=== PATIENT | female | born 1960 | race Caucasian/White ===

== ENCOUNTER → 2019-03-27 16:26 | Outpatient (ROUT) | payer BC, SELFPAY ==
[2019-03-27 16:54] LABS: Add Manual Diff / Slide Review NO; Basophils Absolute Auto 0 /uL (0-100); Basophils Percent Auto 0.9 % (0-2); Eosinophils Absolute Auto 100 /uL (0-450); Eosinophils Percent Auto 4.1 % (2-4); Hematocrit 40.9 % (36-46); Hemoglobin 13.6 g/dL (12.0-16.0); Lymphocytes Absolute Auto 900 /uL (1100-4500); Mean Corpuscular HGB Conc 33.4 % (30-36); Mean Corpuscular Hemoglobin 29.7 PG (26-34); Mean Corpuscular Volume 89.1 fL (80-100); Monocytes Absolute Auto 300 /uL (0-900); Monocytes Percent Auto 8.2 % (3-14); Neutrophils Absolute Auto 2000 /uL (1500-7000); Neutrophils Percent Auto 59.8 % (50-75); Platelet Count 207 X10^3/uL (150-400); Red Blood Cell Count 4.59 X10^6/uL (4.0-5.2); Red Cell Distribution Width 13.3 % (11.6-14.8); White Blood Cell Count 3.3 X10^3/uL (4.5-11.0)
[2019-03-27 17:07] LABS: Blood Urea Nitrogen 14 mg/dL (7-17); Calcium 9.3 mg/dL (8.4-10.2); Carbon Dioxide 28 mmol/L (22-32); Chloride 100 mmol/L (98-107); Cholesterol 258 mg/dL (140-199); Estimated Glomerular Filt Rate > 60.0 mL/min (>60); Glucose 93 mg/dL (70-100); HDL Cholesterol 60 mg/dL (40-60); HEMOLYSIS < 15 (0-50); LDL Cholesterol Calculated 179 mg/dL (<100); Potassium 4.6 mmol/L (3.4-5.1); Sodium 138 mmol/L (137-145); Triglycerides 96 mg/dL (35-150)
[2019-03-27 17:36] LABS: TSH w/ Reflex to FT4 < 0.02 uIU/mL (0.47-4.68)
[2019-03-27 18:19] LABS: Free T4, Direct Thyroxine 1.85 ng/dL (0.78-2.19)
== END ==
PROVIDERS: Visit Provider Internal Medicine
DX: Z13.1 Encounter for screening for diabetes mellitus (principal); D72.819 Decreased white blood cell count, unspecified; E78.5 Hyperlipidemia, unspecified; E89.0 Postprocedural hypothyroidism
CPT/HCPCS: 80048; 80061; 84439; 84443; 85025

== ENCOUNTER 2019-10-22 11:16 | Emergency (ER) | payer BC, SELFPAY ==
[2019-10-22 11:20] VITALS: BP 146/74; PULSE 74; RESP 14; TEMP 37.1; O2SAT 100
--- NOTE | 2019-10-22 11:34 | DI.RAD.S_ITS ---
PROCEDURE: XR CHEST 1V INDICATIONS: epigastric pain TECHNIQUE: One view of the chest was acquired. COMPARISON: None. FINDINGS: Surgical changes and devices: None. Lungs and pleura: Lungs are clear. No pleural effusions or pneumothorax. Mediastinum: Mediastinal contours appear normal. Heart size is normal. Bones and chest wall: No suspicious bony lesions. Overlying soft tissues appear unremarkable. IMPRESSION: No acute disease Dictated by: Adelso White M.D. on 10/22/2019 at 13:35 Approved by: Adelso White M.D. on 10/22/2019 at 13:35
--- NOTE | 2019-10-22 11:36 | ED.FALL ---
HPI - Fall <KATY Be - Last Filed: 10/22/19 20:03> General Chief Complaint: Fall Stated Complaint: fall 4 days ago,sholder pain,hit head,indigestion Time Seen by Provider: 10/22/19 11:21 Source: patient Mode of arrival: Ambulatory History of Present Illness HPI Narrative: 59yo female presents to the ED for epigastric pain and nausea that started after fall. She states she fell 5 days ago on Monday. She was on a boat that was not moving but slipped and fell. Patient states she fell on the floor with about hitting her back in the back of her head. She did not lose consciousness, denies vomiting, denies taking any blood thinners. She was able to get up immediately after the fall. She reports feeling stiff and sore especially in the mornings. This morning she woke up and noticed increased soreness that started in the middle of her back and radiated to her neck, this was worse with movement. However, she also noticed epigastric pain and nausea. She woke up this morning and took a heartburn pill and drink chamomile tea and went back to bed. Upon wakening her epigastric pain resolved but she continues to have nausea. She denies any vision changes, headaches at this time, neck pain at this time, arm pain, vomiting, diarrhea, fevers, shortness of breath, cough, or any other concerns. Patient states she has a history of thyroid cancer approximately 20 years ago, her thyroid is removed and she takes Synthroid. Denies any other major medical issues. Related Data Previous Rx's Medication Instructions Recorded ondansetron 4 mg PO Q6H PRN #6 tab 10/22/19 Allergies Allergy/AdvReac Type Severity Reaction Status Date / Time epinephrine AdvReac Intermediate Palpitation Verified 10/22/19 11:27 s Review of Systems <KATY Be - Last Filed: 10/22/19 20:03> Review of Systems Narrative: REVIEW OF SYSTEMS: GENERAL: Denies fever, chills, malaise, or wt. loss. HENT: No reports headache, see HPI. EYES: No vision changes. CARDIOVASCULAR: No chest pain. RESPIRATORY: No cough. GASTROINTESTINAL: Complains of epigastric pain, see HPI GENITOURINARY: No flank pain, urinary incontinence, hesitancy, frequency, or dysuria. MUSCULOSKELETAL: No pain, weakness, or trauma. INTEGUMENTARY: No rash, lesions, or pruritus. NEURO: No numbness, tingling, memory loss, confusion. PSYCH: No behavior or mood changes. Patient History <KATY Be - Last Filed: 10/22/19 20:03> Medical History No significant medical problems (Acute) Social History Smoking Status: Former smoker Smoking Status: Former smoker tobacco type: cigarettes alcohol intake frequency: 0-2 drinks per day Substance Use Type: does not use Exam <KATY Be - Last Filed: 10/22/19 20:03> Initial Vital Signs Initial Vital Signs: Vital Signs Temperature 98.7 F 10/22/19 11:20 Pulse Rate 74 10/22/19 11:20 Respiratory Rate 14 10/22/19 11:20 Blood Pressure 146/74 H 10/22/19 11:20 Pulse Oximetry 100 10/22/19 11:20 PHYSICAL EXAMINATION: GENERAL: Well groomed, alert, and cooperative. Answers questions promptly and appropriately. Vital signs noted. HENT: Normocephalic, atraumatic. Hearing intact. Oral mucosa is pink and moist. EYES: Conjunctiva pink, sclera white, no periorbital swelling. NECK: Nontender, full range of motion CARDIOVASCULAR: S1 and S2 sounds normal. Regular rate and rhythm, no murmurs, clicks, or bruits. No pedal edema. RESPIRATORY: Normal respiratory rate, trachea midline, airway patent. No stridor, nasal flaring or accessory muscle use. Lungs are clear in all shaw without wheeze, rhonchi, or crackles. GASTROINTESTINAL: Bowel sounds normoactive. Abdomen is soft, slight epigastric tenderness. No organomegaly, no palpable masses. GENITALURINARY: No flank tenderness. MUSCULOSKELETAL: Mild mid thoracic paraspinal vertebral tenderness. Normal gait and coordination. Equal tone and mass bilaterally. No spinal deformities or bony tenderness. Equal spanish professor strength bilaterally. EXTREMITIES: CMS intact, no pedal edema. SKIN: Warm, dry, soft, appropriate color for ethnicity. No lesions, rashes, or wounds to visualized areas. NEURO: Alert and Oriented X 3. Good coordination. No ataxia, or sensory deficits, or cognitive issues. PSYCH: Appropriate affect and mood. <Sean Espinoza MD - Last Filed: 10/23/19 13:17> Initial Vital Signs Initial Vital Signs: Vital Signs Temperature 98.7 F 10/22/19 11:20 Pulse Rate 74 10/22/19 11:20 Respiratory Rate 14 10/22/19 11:20 Blood Pressure 146/74 H 10/22/19 11:20 Pulse Oximetry 100 10/22/19 11:20 Scores <KATY Be - Last Filed: 10/22/19 20:03> Nexus Score for C-Spine Focal Neurologic deficit present: No Midline spinal tenderness present: No Altered level of conciousness present: No Intoxication present: No Distracting Injury Present: No Nexus Criteria for C-spine: 0 Course <KATY Be - Last Filed: 10/22/19 20:03> Course Course Narrative: Patient was given ondansetron and Toradol, reports improvement of symptoms. Orders Ordered: Discontinued Medications Ketorolac Tromethamine (Toradol) 30 mg IV NOW ONE Stop: 10/22/19 11:35 Last Admin: 10/22/19 12:05 Dose: 30 mg Documented by: MARLEY Ondansetron HCl (Zofran) 4 mg IV NOW ONE Stop: 10/22/19 11:35 Last Admin: 10/22/19 12:05 Dose: 4 mg Documented by: MARLEY Vital Signs Vital signs: Vital Signs - 8 hr 10/22/19 12:59 Pulse Rate 72 Blood Pressure 115/55 L Pulse Oximetry 99 <Sean Espinoza MD - Last Filed: 10/23/19 13:17> Orders Ordered: Discontinued Medications Ketorolac Tromethamine (Toradol) 30 mg IV NOW ONE Stop: 10/22/19 11:35 Last Admin: 10/22/19 12:05 Dose: 30 mg Documented by: MARLEY Ondansetron HCl (Zofran) 4 mg IV NOW ONE Stop: 10/22/19 11:35 Last Admin: 10/22/19 12:05 Dose: 4 mg Documented by: MARLEY Vital Signs Vital signs: Vital Signs - 8 hr 10/22/19 12:59 Pulse Rate 72 Blood Pressure 115/55 L Pulse Oximetry 99 MDM - Fall <KATY Be - Last Filed: 10/22/19 20:03> Medical Records Attestation: I reviewed the patient's medical records. Lab Data Attestation: I reviewed the patient's lab results. Result diagrams: 10/22/19 11:56 10/22/19 11:56 Labs: Lab Results 10/22/19 10/22/19 Range/Units 11:56 11:56 WBC 3.3 L (4.5-11.0) X10^3/uL RBC 4.40 (4.0-5.2) X10^6/uL Hgb 12.7 (12.0-16.0) g/dL Hct 38.5 (36-46) % MCV 87.4 (80-100) fL MCH 28.9 (26-34) PG MCHC 33.0 (30-36) % RDW 13.2 (11.6-14.8) % Plt Count 204 (150-400) X10^3/uL Neut % (Auto) 63.2 (50-75) % Lymph % (Auto) 25.8 (25-40) % Sierra % (Auto) 8.5 (3-14) % Eos % (Auto) 1.7 L (2-4) % Baso % (Auto) 0.8 (0-2) % Neut # (Auto) 2100 (8887-2626) /uL Lymph # (Auto) 800 L (3745-4833) /uL Sierra # (Auto) 300 (0-900) /uL Eos # (Auto) 100 (0-450) /uL Baso # (Auto) 0 (0-100) /uL Sodium 137 (137-145) mmol/L Potassium 4.2 (3.4-5.1) mmol/L Chloride 103 (98-107) mmol/L Carbon Dioxide 27 (22-32) mmol/L BUN 10 (7-17) mg/dL Creatinine 0.64 (0.52-1.04) mg/dL Estimated GFR > 60.0 (>60) mL/min BUN/Creatinine Ratio 15.6 (6-22) Glucose 94 (70-100) mg/dL Calcium 9.1 (8.4-10.2) mg/dL Total Bilirubin 0.7 (0.2-1.3) mg/dL AST 26 (14-36) IU/L ALT 20 (<35) IU/L Alkaline Phosphatase 85 (38-126) U/L Total Creatine Kinase 44 (30-135) U/L CK-MB (CK-2) TNP CK-MB (CK-2) Rel Index TNP Troponin I < 0.012 (0.01-0.034) ng/mL Total Protein 7.7 (6.3-8.2) g/dL Albumin 4.4 (3.5-5.0) g/dL Globulin 3.3 (1.7-4.1) g/dL Albumin/Globulin Ratio 1.3 (1.0-2.8) Imaging Data Chest x-ray: Radiologist's Impression: [address] [address] XRay Report Signed Patient: Gisselle Lao FMR#: [id number] : 2Acct:[id number] Age/Sex: 59 / FDate of Service: 10/22/19 Loc: ED Accession Number: [id number] Procedure: XR chest 1V Ordering Provider: Magy Sunshine PROCEDURE: XR CHEST 1V INDICATIONS: epigastric pain TECHNIQUE: One view of the chest was acquired. COMPARISON: None. FINDINGS: Surgical changes and devices: None. Lungs and pleura: Lungs are clear. No pleural effusions or pneumothorax. Mediastinum: Mediastinal contours appear normal. Heart size is normal. Bones and chest wall: No suspicious bony lesions. Overlying soft tissues appear unremarkable. IMPRESSION: No acute disease Dictated by: Adelso White M.D. on 10/22/2019 at 13:35 Approved by: Adelso White M.D. on 10/22/2019 at 13:35 ECG Data Interpretation: 1125: Normal sinus rhythm, rate 82, [place] interval 142, QTC 441. No ST elevation or ST depression. T-wave inversion noted in Lead III and V1. [facility] Narrative Medical decision making narrative: 59-year-old female presents emergency department for epigastric pain and back pain after fall. I suspect patient's symptoms are most likely caused by post concussion syndrome given mechanism of injury, associated nausea, and headaches. Less concern for intracranial etiology given normal neurological exam, greater than 48 hours since onset, and lack of other concerning symptoms. Less likely cardiac etiology given negative troponin, non remarkable EKG, and unremarkable chest x-ray. Less likely fracture given lack of bony tenderness, full range of motion of neck, and tenderness with palpation along surrounding muscles. Additionally, patient reports stiffness that is relieved throughout the day. Less likely acute abdominal etiology given lack of infectious symptoms such as tachycardia or fever. Laboratory work is non-remarkable, abdominal exam is benign. Patient was encouraged to take Tylenol and ibuprofen as needed for pain. Return precautions given for new or worsening symptoms. Patient agreed to plan of care verbalized understanding. <Sean Espinoza MD - Last Filed: 10/23/19 13:17> Lab Data Labs: Lab Results 10/22/19 10/22/19 Range/Units 11:56 11:56 WBC 3.3 L (4.5-11.0) X10^3/uL RBC 4.40 (4.0-5.2) X10^6/uL Hgb 12.7 (12.0-16.0) g/dL Hct 38.5 (36-46) % MCV 87.4 (80-100) fL MCH 28.9 (26-34) PG MCHC 33.0 (30-36) % RDW 13.2 (11.6-14.8) % Plt Count 204 (150-400) X10^3/uL Neut % (Auto) 63.2 (50-75) % Lymph % (Auto) 25.8 (25-40) % Sierra % (Auto) 8.5 (3-14) % Eos % (Auto) 1.7 L (2-4) % Baso % (Auto) 0.8 (0-2) % Neut # (Auto) 2100 (5010-4936) /uL Lymph # (Auto) 800 L (4612-3524) /uL Sierra # (Auto) 300 (0-900) /uL Eos # (Auto) 100 (0-450) /uL Baso # (Auto) 0 (0-100) /uL Sodium 137 (137-145) mmol/L Potassium 4.2 (3.4-5.1) mmol/L Chloride 103 (98-107) mmol/L Carbon Dioxide 27 (22-32) mmol/L BUN 10 (7-17) mg/dL Creatinine 0.64 (0.52-1.04) mg/dL Estimated GFR > 60.0 (>60) mL/min BUN/Creatinine Ratio 15.6 (6-22) Glucose 94 (70-100) mg/dL Calcium 9.1 (8.4-10.2) mg/dL Total Bilirubin 0.7 (0.2-1.3) mg/dL AST 26 (14-36) IU/L ALT 20 (<35) IU/L Alkaline Phosphatase 85 (38-126) U/L Total Creatine Kinase 44 (30-135) U/L CK-MB (CK-2) TNP CK-MB (CK-2) Rel Index TNP Troponin I < 0.012 (0.01-0.034) ng/mL Total Protein 7.7 (6.3-8.2) g/dL Albumin 4.4 (3.5-5.0) g/dL Globulin 3.3 (1.7-4.1) g/dL Albumin/Globulin Ratio 1.3 (1.0-2.8) Discharge Plan Departure Patient Disposition: Home Clinical Impression: Concussion Qualifiers: Encounter type: initial encounter Loss of consciousness presence/duration: without LOC Qualified Code(s): S06.0X0A - Concussion without loss of consciousness, initial encounter Discharge Date/Time: 10/22/19 13:07 Instructions: DI for Concussion, How to Prevent Falls Activity Restrictions/Additional Instructions: Thank you for entrusting me with your care today. As discussed, it appears you have a mild concussion. This can cause you to have headaches, nausea, and feels fatigued. Symptoms can last up to 2 weeks. I recommend decreasing activities that cause worsening symptoms such as screen time, and rigorous physical activity. Take naps when possible. I have prescribed you some nausea medication, please use this as needed. Return emergency department for any new or worsening symptoms such as severe pain, uncontrollable vomiting, chest pain, or any other concerns. Prescriptions: New ondansetron 4 mg tablet,disintegrating 4 mg PO Q6H PRN (Reason: nausea and vomiting) Qty: 6 RF: 0 Referrals: Laisha Quigley MD [Primary Care Provider] - <Sean Espinoza MD - Last Filed: 10/23/19 13:17> Cosign ED Attending Cosignature Attestation: I was immediately available in the department for consultation. This documentation has been reviewed and I agree with assessment and plan. Supervised by Sean Espinoza MD
[2019-10-22 12:03] LABS: Add Manual Diff / Slide Review NO; Basophils Absolute Auto 0 /uL (0-100); Basophils Percent Auto 0.8 % (0-2); Eosinophils Absolute Auto 100 /uL (0-450); Eosinophils Percent Auto 1.7 % (2-4); Hematocrit 38.5 % (36-46); Hemoglobin 12.7 g/dL (12.0-16.0); Lymphocytes Absolute Auto 800 /uL (1100-4500); Lymphocytes Percent Auto 25.8 % (25-40); Mean Corpuscular Hemoglobin 28.9 PG (26-34); Mean Corpuscular Volume 87.4 fL (80-100); Monocytes Absolute Auto 300 /uL (0-900); Monocytes Percent Auto 8.5 % (3-14); Neutrophils Absolute Auto 2100 /uL (1500-7000); Neutrophils Percent Auto 63.2 % (50-75); Platelet Count 204 X10^3/uL (150-400); Red Cell Distribution Width 13.2 % (11.6-14.8); White Blood Cell Count 3.3 X10^3/uL (4.5-11.0)
[2019-10-22] MEDS: ONDANSETRON 4 MG/2 ML INJ IV (12:05)
[2019-10-22] MEDS: KETOROLAC 60 MG/2 ML VIAL 30 MG IV (12:05)
[2019-10-22 12:15] LABS: Alanine Aminotransferase 20 IU/L (<35); Albumin 4.4 g/dL (3.5-5.0); Albumin Globulin Ratio 1.3 (1.0-2.8); Alkaline Phosphatase 85 U/L (38-126); Aspartate Aminotransferase 26 IU/L (14-36); BUN Creatinine Ratio 15.6 (6-22); Bilirubin Total 0.7 mg/dL (0.2-1.3); Blood Urea Nitrogen 10 mg/dL (7-17); Calcium 9.1 mg/dL (8.4-10.2); Carbon Dioxide 27 mmol/L (22-32); Chloride 103 mmol/L (98-107); Creatine Kinase 44 U/L (30-135); Estimated Glomerular Filt Rate > 60.0 mL/min (>60); Globulin 3.3 g/dL (1.7-4.1); Glucose 94 mg/dL (70-100); HEMOLYSIS < 15 (0-50); Potassium 4.2 mmol/L (3.4-5.1); Sodium 137 mmol/L (137-145); Total Protein 7.7 g/dL (6.3-8.2)
[2019-10-22 12:26] LABS: Troponin I < 0.012 ng/mL (0.01-0.034)
[2019-10-22 12:59] VITALS: BP 115/55; PULSE 72; O2SAT 99
== END 2019-10-22 13:07 | disposition home or self-care (01) ==
PROVIDERS: Emergency Provider Nurse Practitioner; PCP Internal Medicine
DX: S06.0X0A Concussion without loss of consciousness, initial encounter (principal); R10.13 Epigastric pain; R11.0 Nausea; W19.XXXA Unspecified fall, initial encounter
CPT/HCPCS: 36415; 71045; 80053; 82550; 84484; 85025; 93005; 93010; 96374; 96375; 99284; J1885; J2405

== ENCOUNTER → 2020-05-18 12:53 | Outpatient (CLI) | payer BC, SELFPAY ==
[2020-05-18 13:36] LABS: COVID19 -Nasal RAPID Negative (Negative)
== END ==
PROVIDERS: PCP Internal Medicine; Visit Provider Physician Assistant
DX: Z20.822 Contact with and (suspected) exposure to COVID-19 (principal)
CPT/HCPCS: 87635

== ENCOUNTER → 2020-05-18 13:40 | Outpatient (CLI) | payer BC, SELFPAY ==
[2020-05-18 13:57] LABS: Add Manual Diff / Slide Review NO; Basophils Absolute Auto 0 /uL (0-100); Basophils Percent Auto 0.7 % (0-2); Eosinophils Absolute Auto 100 /uL (0-450); Eosinophils Percent Auto 1.5 % (2-4); Hematocrit 40.6 % (36-46); Hemoglobin 13.8 g/dL (12.0-16.0); Lymphocytes Absolute Auto 900 /uL (1100-4500); Lymphocytes Percent Auto 25.8 % (25-40); Mean Corpuscular Hemoglobin 29.9 PG (26-34); Monocytes Absolute Auto 300 /uL (0-900); Monocytes Percent Auto 7.5 % (3-14); Neutrophils Absolute Auto 2300 /uL (1500-7000); Neutrophils Percent Auto 64.5 % (50-75); Platelet Count 230 X10^3/uL (150-400); Red Blood Cell Count 4.62 X10^6/uL (4.0-5.2); Red Cell Distribution Width 13.4 % (11.6-14.8); White Blood Cell Count 3.6 X10^3/uL (4.5-11.0)
[2020-05-18 14:09] LABS: Alanine Aminotransferase 24 IU/L (<35); Albumin 4.6 g/dL (3.5-5.0); Albumin Globulin Ratio 1.3 (1.0-2.8); Alkaline Phosphatase 100 U/L (38-126); Amylase 63 U/L (30-110); Aspartate Aminotransferase 26 IU/L (14-36); BUN Creatinine Ratio 18.2 (6-22); Bilirubin Total 0.4 mg/dL (0.2-1.3); Blood Urea Nitrogen 10 mg/dL (7-17); Calcium 9.3 mg/dL (8.4-10.2); Carbon Dioxide 31 mmol/L (22-32); Chloride 101 mmol/L (98-107); Creatine Kinase 45 U/L (30-135); Estimated Glomerular Filt Rate > 60.0 mL/min (>60); Globulin 3.5 g/dL (1.7-4.1); Glucose 105 mg/dL (70-100); HEMOLYSIS < 15 (0-50); Lipase 29 U/L (23-300); Sodium 137 mmol/L (137-145); Total Protein 8.1 g/dL (6.3-8.2)
[2020-05-18 14:15] LABS: D Dimer < 200 ng/mL (<230)
[2020-05-18 14:20] LABS: Troponin I < 0.012 ng/mL (0.01-0.034)
[2020-05-18 14:48] LABS: TSH w/ Reflex to FT4 < 0.02 uIU/mL (0.47-4.68)
[2020-05-18 18:07] LABS: Free T4, Direct Thyroxine 1.43 ng/dL (0.78-2.19)
== END ==
PROVIDERS: PCP Internal Medicine; Referring Provider Physician Assistant; Visit Provider Physician Assistant
DX: R07.9 Chest pain, unspecified (principal); R06.02 Shortness of breath; Z20.822 Contact with and (suspected) exposure to COVID-19
CPT/HCPCS: 36415; 80053; 82150; 82550; 83690; 84439; 84443; 84484; 85025; 85379; 87635

== ENCOUNTER → 2020-05-20 10:29 | Outpatient (CLI) | payer BC, SELFPAY ==
--- NOTE | 2020-05-20 10:30 | DI.MG.S_ITS ---
BILATERAL DIGITAL SCREENING MAMMOGRAM 3D/2D WITH CAD: 05/20/2020 CLINICAL: Routine screening. Comparison is made to exams dated: 09/26/2012 mammogram, 08/04/2015 mammogram, and 11/03/2016 mammogram - outside location. There are scattered fibroglandular elements in both breasts. Current study was also evaluated with a Computer Aided Detection (CAD) system. No significant masses, calcifications, or other findings are seen in either breast. There has been no significant interval change. IMPRESSION: NEGATIVE There is no mammographic evidence of malignancy. A 1 year screening mammogram is recommended. This exam was interpreted at Station ID: [id number]. NOTE: For mammograms, a report in lay terms will be sent to the patient. Approximately 15% of breast malignancies will not be visualized mammographically. In the management of a palpable breast mass, a negative mammogram must not discourage biopsy of a clinically suspicious lesion. Electronically Signed By: Esme hernandez/oscar:05/20/2020 12:05:08 letter sent: Normal Exam ACR BI-RADS Category 1: Negative [id number]
== END ==
PROVIDERS: PCP Internal Medicine; Referring Provider Internal Medicine; Visit Provider Internal Medicine
DX: Z12.31 Encounter for screening mammogram for malignant neoplasm of breast (principal)
CPT/HCPCS: 77063; 77067

== ENCOUNTER → 2020-11-02 14:26 | Outpatient (CLI) | payer BC, SELFPAY ==
[2020-11-02 16:42] LABS: COVID19 -Nasal RAPID Negative (Negative)
== END ==
PROVIDERS: PCP Internal Medicine; Visit Provider Physician Assistant
DX: Z20.822 Contact with and (suspected) exposure to COVID-19 (principal); R05 Cough
CPT/HCPCS: 87635

== ENCOUNTER → 2020-11-11 14:28 | Outpatient (CLI) | payer BC, SELFPAY ==
--- NOTE | 2020-11-11 | DI.RAD.S_ITS ---
PROCEDURE: XR DEXA AXIAL SKELETON INDICATIONS: Other osteoporosis without current pathological fracture COMPARISON: None. FINDINGS: This blank DEXA report has been sent in error by the PACS system. The correct and complete report will be forthcoming in 1-2 days. Thank you for your patience and understanding. Dictated by: Naomie Rico MD, PhD on 11/12/2020 at 8:37 Approved by: Naomie Rico MD, PhD on 11/12/2020 at 8:37
== END ==
PROVIDERS: PCP Internal Medicine; Referring Provider Internal Medicine; Visit Provider Internal Medicine
DX: M81.8 Other osteoporosis without current pathological fracture (principal); Z78.0 Asymptomatic menopausal state; E07.9 Disorder of thyroid, unspecified; Z82.62 Family history of osteoporosis
CPT/HCPCS: 77080